=== PATIENT | female | born 1990 | race Two or more races ===

== ENCOUNTER 2018-07-09 22:14 | Emergency (ER) | payer BC ==
[~2018-07-09] VITALS: Ht 162.6 cm; Wt 74.8 kg
--- NOTE | 2018-07-09 22:35 | NUR ---
to bed 2 ambulatory c/o headache, dizziness, SOB x1 day, palpitation [employer] but resolved upon arrival to er. pt aaox4 no acute distress noted, resp even and unlabored. lung sounds clear bilaterally. place pt on cardiac monitoring, continuous pox. pending er md son.
[2018-07-09 22:57] LABS: BASOPHILS % (AUTO) 0.4 % (0.0-2.0); HEMATOCRIT 37 % (33-45); HEMOGLOBIN 12.4 g/dL (11.5-14.8); LYMPHOCYTES # (AUTO) 2.4 /CMM (0.8-4.8); LYMPHOCYTES % (AUTO) 22.3 % (20.0-44.0); MEAN CORPUSCULAR HGB CONC 34 g/dl (31.0-36.0); MEAN CORPUSCULAR VOLUME 83 fL (82-100); MONOCYTES # (AUTO) 0.9 /CMM (0.1-1.30); MONOCYTES % (AUTO) 8.2 % (2.0-12.0); NEUTROPHILS # (AUTO) 7.2 /CMM (1.8-8.9); NEUTROPHILS % (AUTO) 68.1 % (43.0-81.0); PLATELET COUNT (AUTO) 207 /CMM (150-450); RED BLOOD CELL COUNT(AUTO) 4.48 MIL/uL (4.0-5.2); WHITE BLOOD COUNT (AUTO) 10.6 K/uL (4.3-11.0)
--- NOTE | 2018-07-09 23:02 | NUR ---
urine sample collected and sent to lab.
[2018-07-09 23:08] LABS: CALCIUM, SERUM 9.1 mg/dL (8.5-10.1); CREATININE 0.7 mg/dL (0.6-1.3); POTASSIUM 3.8 mmol/L (3.5-5.1)
[2018-07-09 23:10] LABS: APPEARANCE,URINE Slightly Cloudy (CLEAR); BILIRUBIN,URINE SMALL (NEGATIVE); BLOOD, URINE Negative Ery/uL (NEGATIVE); COLOR,URINE Dark (YELLOW); KETONES,URINE Trace (NEGATIVE); LEUKOCYTE ESTERASE ,URINE Small (NEGATIVE); NITRITE, URINE Negative (NEGATIVE); PROTEIN,URINE Trace mg/dl (NEGATIVE); UGLUCOSE Negative (NEGATIVE); UROBILINOGEN,URINE 0.2 EU/dL (0.2)
[2018-07-09 23:15] LABS: ALBUMIN 3.8 g/dL (3.4-5.0); BILIRUBIN,TOTAL 0.3 mg/dL (0.2-1.0); TOTAL PROTEIN, SERUM 7.9 g/dL (6.4-8.2)
[2018-07-09 23:22] LABS: THYROID STIMULATING HORMONE 0.563 uIU/mL (0.358-3.74)
[2018-07-09] MEDS ORDERED: IV NS 0.9% 1,000 ML BAG IV ONE (23:30)
[2018-07-09] MEDS ORDERED: CEFTRIAXONE 1 G in IV D5W 50 ML IV ONE (23:30)
[2018-07-09] MEDS ORDERED: KETOROLAC TROMETHAMINE INJ 30 MG/ML VIAL IV ONE (23:30)
[2018-07-09] MEDS ORDERED: CEFTRIAXONE 1GM BAG (ER ONLY) 50 ML IV ONE (23:35)
[2018-07-09] MEDS ORDERED: KETOROLAC TROMETHAMINE INJ 30 MG/ML VIAL ONE (23:36)
[2018-07-10 00:33] LABS: BACTERIA,URINE Moderate /HPF (None Seen); MUCUS,URINE Many /LPF (None Seen); RBC,URINE 0-2 /HPF (0-2); SQUAMOUS EPITHELIAL CELL,UR Moderate /HPF (None Seen)
--- NOTE | 2018-07-10 00:46 | NUR ---
roberto rowley at bedside talking to pt.
[2018-07-10 00:49] VITALS: BP 128/72
--- NOTE | 2018-07-10 01:01 | NUR ---
IV removed. Catheter intact and site benign. Pressure and 4x4 applied to site. No bleeding noted. Patient discharged to home in stable condition. Written and verbal after care instructions given. Patient verbalizes understanding of instruction. ambulatory with a steady gait noted. pt aaox4 no acute distress noted, resp even and unlabored. pt s/o at bedside to take pt home.
== END 2018-07-10 01:04 | disposition home or self-care (01) ==
LOC: ER 22:14
DX: N39.0 Urinary tract infection, site not specified (principal); E86.0 Dehydration; E11.9 Type 2 diabetes mellitus without complications; R00.0 Tachycardia, unspecified; Z98.890 Other specified postprocedural states
CPT/HCPCS: 36415; 71045; 80048; 80076; 81001; 84443; 84703; 85025; 85378; 87086; 93005; 96365; 96375; 99284; J0696 ×2; J1885; J7030; J7060; 81000-TC

== ENCOUNTER 2021-03-05 08:09 | Emergency (ER) | payer MEDICAID, OTHER ==
[~2021-03-05] VITALS: Ht 152.4 cm; Wt 64.9 kg
--- NOTE | 2021-03-05 08:55 | NUR ---
PT CAME TO ER C/O VAGINAL ITCHING, BURNING AND PAIN X 5-6 DAYS. AAOX4, BREATHING EVEN AND UNLABORED, ASSISTED TO ER BED 16, IN GOWN, GOT PT READY FOR VAGINAL EXAM.
[2021-03-05 09:53] LABS: BILIRUBIN,URINE NEGATIVE (NEGATIVE); LEUKOCYTE ESTERASE ,URINE NEGATIVE (NEGATIVE); NITRITE, URINE NEGATIVE (NEGATIVE); PH,URINE 6.5 (5.0-8.0); PROTEIN,URINE NEGATIVE (NEGATIVE); UGLUCOSE NEGATIVE (NEGATIVE); UROBILINOGEN,URINE 0.2 EU/dL (0.2)
[2021-03-05 09:54] LABS: COLOR,URINE STRAW (YELLOW)
[2021-03-05] MEDS ORDERED: METR500T PO (10:05)
--- NOTE | 2021-03-05 11:30 | NUR ---
Patient discharged to home in stable condition. Written and verbal after care instructions given. Patient verbalizes understanding of instruction.
[2021-03-05 11:34] VITALS: BP 105/69
== END 2021-03-05 11:30 | disposition home or self-care (01) ==
LOC: ER 08:15
DX: N76.0 Acute vaginitis (principal); E11.9 Type 2 diabetes mellitus without complications; Z98.890 Other specified postprocedural states
CPT/HCPCS: 84703-TC

== ENCOUNTER 2021-08-01 23:50 | Emergency (ER) | payer OTHER ==
[~2021-08-01] VITALS: Ht 157.5 cm; Wt 65.3 kg
[~2021-08-01 23:50] MED LIST: METR500T PO
--- NOTE | 2021-08-02 00:35 | NUR ---
TO ER BED 3. BIBS C/O ELEVATED HEART RATE, AND "PAIN ON BILATERAL THROAT AND TONGUE" X 1 DAY. HR NOTED AT 101 DURING TRIAGE. CONNECTED TO MONITOR. NOT IN RESPIRATORY DISTRESS. AWAITING MD LICEA
--- NOTE | 2021-08-02 00:46 | NUR ---
RAPID GROUP A STREP SWAB COLLECTED AND SENT TO LAB
[2021-08-02 01:24] VITALS: BP 112/70
--- NOTE | 2021-08-02 01:24 | NUR ---
Patient discharged to home in stable condition. Written and verbal after care instructions given. Patient verbalizes understanding of instruction.
== END 2021-08-02 01:26 | disposition home or self-care (01) ==
LOC: ER 23:58
DX: J02.9 Acute pharyngitis, unspecified (principal); Z71.1 Person with feared health complaint in whom no diagnosis is made; E11.9 Type 2 diabetes mellitus without complications; Z98.890 Other specified postprocedural states
CPT/HCPCS: 86403-TC; 87070-TC

== ENCOUNTER 2023-07-11 23:35 | Emergency (ER) | payer OTHER ==
[~2023-07-11] VITALS: Ht 152.4 cm; Wt 61.2 kg
[2023-07-12] MEDS ORDERED: IBUPROFEN 400 MG TABLET ONE (00:10)
[2023-07-12] MEDS: IBUPROFEN 400 MG TABLET PO ONE (00:22)
[2023-07-12 01:27] VITALS: BP 125/87; TEMP 98.5; O2SAT 97
== END 2023-07-12 01:27 | disposition home or self-care (01) ==
LOC: ER 23:37
DX: J02.9 Acute pharyngitis, unspecified (principal); E11.9 Type 2 diabetes mellitus without complications; Z20.822 Contact with and (suspected) exposure to COVID-19
CPT/HCPCS: 86403-TC; 87070-TC